=== PATIENT | male | born 1990 | race African-American/Black ===

== ENCOUNTER → 2016-12-11 | Outpatient (CLI) | payer MEDICAID ==
[2016-12-11 18:12] LABS: HEMATOCRIT 42.5 % (37.9-51.0); HEMOGLOBIN 13.5 g/dL (13.5-17.0); MEAN CORPUSCULAR HEMOGLOBIN 27.7 pg (27.0-33.4); MEAN CORPUSCULAR HGB CONC 31.7 g/dL (32.0-36.0); MEAN CORPUSCULAR VOLUME 88 fl (80-97); RED BLOOD COUNT 4.85 10^6/uL (4.35-5.55); WHITE BLOOD COUNT 17.7 10^3/uL (4.0-10.5)
[2016-12-11 18:26] LABS: BAND NEUTROPHILS % (MANUAL) 4 % (3-5); BASOPHILS % (MANUAL) 0 % (0-2); EOSINOPHILS % (MANUAL) 0 % (0-6); LYMPHOCYTES % (MANUAL) 5 % (13-45); TOTAL CELLS COUNTED 100
[2016-12-11 18:27] LABS: RBC MORPHOLOGY COMMENT NORMO-CYTIC/CHROMIC
[2016-12-11 18:37] LABS: ALANINE AMINOTRANSFERASE 29 U/L (21-72); ALBUMIN 4.6 g/dL (3.5-5.0); ALKALINE PHOSPHATASE 110 U/L (38-126); ANION GAP 15 (5-19); ASPARTATE AMINO TRANSFERASE 24 U/L (17-59); BILIRUBIN,DIRECT 0.5 mg/dL (0.0-0.4); BILIRUBIN,TOTAL 0.5 mg/dL (0.2-1.3); BLOOD UREA NITROGEN 14 mg/dL (7-20); CALCIUM 10.2 mg/dL (8.4-10.2); CARBON DIOXIDE 20 mmol/L (22-30); CHLORIDE 111 mmol/L (98-107); CREATININE RESULT 1.11 mg/dL (0.52-1.25); GLUCOSE 120 mg/dL (75-110); POTASSIUM 4.4 mmol/L (3.6-5.0); SODIUM 145.9 mmol/L (137-145); TOTAL PROTEIN 8.4 g/dL (6.3-8.2)
== END ==
LOC: LAB 16:19
PROVIDERS: ATTEND Family Medicine
DX: R50.9 Fever, unspecified (principal)
CPT/HCPCS: 36415; 80053; 85025; 87040

== ENCOUNTER → 2016-12-11 | Outpatient (CLI) | payer MEDICAID | LOC: RAD 15:48 | PROVIDERS: ATTEND Family Medicine | DX: R50.9 Fever, unspecified (principal); K44.9 Diaphragmatic hernia without obstruction or gangrene | CPT/HCPCS: 71020 ==

== ENCOUNTER 2017-11-08 19:48 | Inpatient (IN) | payer MEDICAID, OTHER ==
--- NOTE | 2017-11-08 20:47 | ER Document Report ---
ED GI/ - General Chief Complaint: Nausea/Vomiting Stated Complaint: VOMITING Time Seen by Provider: 11/08/17 20:35 Mode of Arrival: Medic Information source: Relative Cannot obtain history due to: Mentally challenged TRAVEL OUTSIDE OF THE [place] IN LAST 30 DAYS: No - HPI Patient complains to provider of: Vomiting - FAMILY MEMBERS DESCRIBE MUCH RETCHING & GAGGING, VERY LITTLE VOMITUS Onset: This morning Timing/Duration: Gradual Quality of pain: Other - CAN'T SAY, NON-VERBAL Severity at maximum: Severe Severity in ED: None Context: Other - RECENT SURGERY (PARA-ESOPHAGEAL HERNIA REPAIR) Associated symptoms: Nausea, Sweaty, Other - DECREASED APPETITE & P.O. INTAKE Exacerbated by: Denies Relieved by: Denies Similar symptoms previously: No Recently seen / treated by doctor: Yes - SURGERY 10/29 @ [facility], RETURNED HOME . - Related Data Allergies/Adverse Reactions: diphenhydramine [From Benadryl] Allergy (Verified 11/08/17 21:02) Latex, Natural Rubber Allergy (Verified 11/08/17 21:02) red dye Allergy (Verified 11/08/17 21:02) Past Medical History - General Information source: Parent Cannot obtain history due to: Mentally challenged - Social History Smoking Status: Never Smoker Cigarette use (# per day): No Chew tobacco use (# tins/day): No Frequency of alcohol use: None Drug Abuse: None Family History: Reviewed & Not Pertinent Patient has suicidal ideation: No Patient has homicidal ideation: No - Past Medical History Cardiac Medical History: Reports: None Pulmonary Medical History: Reports: None EENT Medical History: Reports: None Neurological Medical History: Reports: Hx Seizures, Other - CEREBRAL PALSY Endocrine Medical History: Reports: None Renal/ Medical History: Reports: None Malignancy Medical History: Reports None GI Medical History: Reports: Hx Gastroesophageal Reflux Disease, Hx Hiatal Hernia Musculoskeltal Medical History: Reports Hx Muscle Weakness Skin Medical History: Reports None Past Surgical History: Reports: Other - G-TUBE, MARIELY, PARA-ESOPHAGEAL HERNIA REPAIR - Immunizations Hx Diphtheria, Pertussis, Tetanus Vaccination: Yes Review of Systems - Review of Systems Constitutional: No symptoms reported. denies: Chills, Fever EENT: No symptoms reported Cardiovascular: No symptoms reported Respiratory: Cough - SLIGHT Gastrointestinal: See HPI Genitourinary: No symptoms reported Musculoskeletal: See HPI Skin: No symptoms reported Neurological/Psychological: See HPI Physical Exam - Vital signs Vitals: Pulse Resp BP Pulse Ox 90 18 108/64 97 11/08/17 19:54 11/08/17 19:54 11/08/17 19:54 11/08/17 19:54 Interpretation: No: Hypotensive, Tachycardic, Hypoxic, Tachypneic, Febrile - General General appearance: Appears well, Alert In distress: None - HEENT Head: Normocephalic Eyes: Normal Conjunctiva: Normal Ears: Normal Nasal: Normal Mouth/Lips: Normal Mucous membranes: Normal Neck: Normal, Supple - Respiratory Respiratory status: No respiratory distress Breath sounds: Normal - Cardiovascular Rhythm: Regular Heart sounds: Normal auscultation Murmur: No - Abdominal Inspection: Other - LAPROSCOPIC SURGICAL WOUNDS HEALING WELL Distension: No distension Bowel sounds: Hypoactive Tenderness: Nontender - Extremities General upper extremity: Normal inspection General lower extremity: Normal inspection - Neurological Neuro grossly intact: No - SEE PMH - Skin Skin Temperature: Warm Skin Moisture: Dry Skin Color: Normal Skin Turgor: Elastic Course - Vital Signs Vital signs: Temp Pulse Resp BP Pulse Ox 90 13 116/78 100 11/08/17 19:54 11/08/17 23:01 11/08/17 23:00 11/08/17 23:01 - Laboratory Result Diagrams: 11/08/17 22:25 11/08/17 22:25 Laboratory results interpreted by me: 11/08/17 11/08/17 11/08/17 22:00 22:25 22:25 WBC 15.5 H Hgb 12.5 L Seg Neuts % (Manual) 83 H Lymphocytes % (Manual) 1 L Abs Neuts (Manual) 13.6 H Abs Lymphs (Manual) 0.3 L Abs Monocytes (Manual) 1.6 H Glucose 143 H AST 106 H ALT 184 H Lipase 500.3 H Urine Protein 30 H Urine Glucose (UA) 50 H Urine Ketones TRACE H Urine Urobilinogen 4.0 H Ur Leukocyte Esterase LARGE H Urine Ascorbic Acid 40 H - EKG Interpretation by Me EKG shows normal: Sinus rhythm, [place], Intervals, QRS Complexes, ST-T Waves Rate: Normal Rhythm: NSR, APC's - SOLITARY - Consults DR. Bri WHITAKER Time consulted: 01:32 Reason for consultation: 11/09/17 01:36 RECOMMENDS: SEEK TRANSFER TO [facility], THERE IS NO G.I. CONSULTATION AVAILABLE AT O... 11/09/17 02:55 Agrees to admit patient to [facility]. Patient has been placed on the waiting list for transfer to [place], pending bed availability. DR. KATIE Magana consulted: 02:10 Reason for consultation: 11/09/17 02:54 Opines that the patient is not an appropriate candidate for transfer, as the pancreatitis appears to be mild and uncomplicated and can be properly managed at a lower level of care. Discharge - Discharge Clinical Impression: Vomiting Qualifiers: Vomiting type: unspecified Vomiting Intractability: non-intractable Nausea presence: with nausea Qualified Code(s): R11.2 - Nausea with vomiting, unspecified Pancreatitis Qualifiers: Chronicity: acute Pancreatitis type: unspecified pancreatitis type Acute pancreatitis complication: unspecified Qualified Code(s): K85.90 - Acute pancreatitis without necrosis or infection, unspecified Urinary tract infection Qualifiers: Urinary tract infection type: acute cystitis Hematuria presence: without hematuria Qualified Code(s): N30.00 - Acute cystitis without hematuria Condition: Good Disposition: ADMITTED INPATIENT Admitting Provider: Whitaker Unit Admitted: [facility]
[2017-11-08] MEDS ORDERED: ONDANSETRON HCL INJ/PF 4 MG/2 ML SDV IV ONE (21:01)
[2017-11-08] MEDS ORDERED: DIAZEPAM INJ 10 MG/2 ML DISP.SYRIN IV ONE (21:01)
[2017-11-08 22:16] LABS: APPEARANCE,URINE CLOUDY; BILIRUBIN,URINE NEGATIVE (NEGATIVE); COLOR,URINE YELLOW; GLUCOSE, URINE 50 mg/dL (NEGATIVE); KETONES,URINE TRACE mg/dL (NEGATIVE); LEUKOCYTE ESTERASE,URINE LARGE (NEGATIVE); NITRITE,URINE NEGATIVE (NEGATIVE); PROTEIN,URINE 30 mg/dL (NEGATIVE); URINE SPECIFIC GRAVITY 1.029
[2017-11-08] MEDS ORDERED: LEVOFLOXACIN 500 MG/D5W RTU 500 MG/100 ML RTUPB IV ONE (22:21)
[2017-11-08 22:40] LABS: HEMATOCRIT 38.4 % (37.9-51.0); HEMOGLOBIN 12.5 g/dL (13.5-17.0); MEAN CORPUSCULAR HEMOGLOBIN 28.1 pg (27.0-33.4); MEAN CORPUSCULAR HGB CONC 32.5 g/dL (32.0-36.0); MEAN CORPUSCULAR VOLUME 87 fl (80-97); RED BLOOD COUNT 4.44 10^6/uL (4.35-5.55); RED CELL DISTRIBUTION WIDTH 13.8 % (11.5-14.0); WHITE BLOOD COUNT 15.5 10^3/uL (4.0-10.5)
[2017-11-08 22:56] LABS: ALANINE AMINOTRANSFERASE 184 U/L (21-72); ALBUMIN 3.9 g/dL (3.5-5.0); ALKALINE PHOSPHATASE 91 U/L (38-126); ANION GAP 14 (5-19); ASPARTATE AMINO TRANSFERASE 106 U/L (17-59); BILIRUBIN,DIRECT 0.3 mg/dL (0.0-0.4); BILIRUBIN,TOTAL 0.3 mg/dL (0.2-1.3); BLOOD UREA NITROGEN 12 mg/dL (7-20); CALCIUM 9.6 mg/dL (8.4-10.2); CARBON DIOXIDE 23 mmol/L (22-30); CHLORIDE 104 mmol/L (98-107); GLUCOSE 143 mg/dL (75-110); LIPASE 500.3 U/L (23-300); POTASSIUM 4.6 mmol/L (3.6-5.0); SODIUM 140.6 mmol/L (137-145); TOTAL PROTEIN 6.8 g/dL (6.3-8.2)
[2017-11-08 23:00] LABS: ABSOLUTE LYMPHOCYTES# (MANUAL) 0.3 10^3/uL (0.5-4.7); ABSOLUTE MONOCYTES # (MANUAL) 1.6 10^3/uL (0.1-1.4); ABSOLUTE NEUTROPHILS# (MANUAL) 13.6 10^3/uL (1.7-8.2); BAND NEUTROPHILS % (MANUAL) 5 % (3-5); BASOPHILS % (MANUAL) 0 % (0-2); EOSINOPHILS % (MANUAL) 0 % (0-6); LYMPHOCYTES % (MANUAL) 1 % (13-45); MONOCYTES % (MANUAL) 10 % (3-13); SEGMENTED NEUTROPHILS % (MAN) 83 % (42-78); TOTAL CELLS COUNTED 100
[2017-11-08 23:02] LABS: PLATELET CLUMPS PRESENT; PLATELET COMMENT ADEQUATE; POIKILOCYTOSIS SLIGHT
[2017-11-08 23:03] LABS: PLATELET COUNT 343 10^3/uL (150-450)
[2017-11-09] MEDS: RINGERS SOLUTION,LACTATED 1,000 ML IV PRN ×2 (00:02→05:20)
--- NOTE | 2017-11-09 01:11 | RADIOLOGY REPORT (SQ) ---
EXAM DESCRIPTION: CT ABDOMEN ORAL CONTRAST ONLY CLINICAL HISTORY: 27 years Male, NAUSEA/VOMITING, 10d POST ESOPHAGEAL HERNIA REPAIR COMPARISON: None. TECHNIQUE: No IV contrast. Oral contrast only. Coronal and sagittal reformat. This exam was performed according to our departmental dose-optimization program, which includes automated exposure control, adjustment of the mA and/or kV according to patient size and/or use of iterative reconstruction technique. Limitation: Arm position. FINDINGS: Surgical clips and artifact at the expected gastroesophageal junction. No evidence of obstruction or free air. No free fluid. Unenhanced inferior chest, abdominal structures, and musculoskeleton appear otherwise grossly unremarkable. Impression: No acute findings.
[2017-11-09] MEDS ORDERED: LAMOTRIGINE 100 MG TABLET PO ONE (03:01)
[2017-11-09] MEDS ORDERED: ZONISAMIDE 100 MG CAPSULE PO ONE (03:01)
[2017-11-09] MEDS ORDERED: CEFEPIME 2 GM/D5W RTU 2 GM/50 ML RTUPB IV ONE ×2 (07:00→09:00)
--- NOTE | 2017-11-09 07:47 | EKG REPORT ---
SEVERITY:- BORDERLINE ECG - SINUS RHYTHM : Confirmed by: Devendra Carias MD 09-Nov-2017 07:46:54
[2017-11-09] MEDS ORDERED: POLYETHYLENE GLYCOL 3350 POWDER 17 GM/1 PACKET PO PRN (08:49)
[2017-11-09] MEDS: PANTOPRAZOLE SODIUM 40 MG VIAL IV SCH (09:39)
[2017-11-09] MEDS: CETIRIZINE 10 MG TABLET PO SCH (09:39)
[2017-11-09] MEDS: ZONISAMIDE 100 MG CAPSULE PO SCH ×2 (09:40→18:44)
[2017-11-09] MEDS: DOCUSATE SODIUM 100 MG CAPSULE PO SCH (09:40)
[2017-11-09] MEDS: NORMAL SALINE 1000 ML 1,000 ML IV PRN ×2 (09:40→23:20)
[2017-11-09] MEDS: CEFEPIME HCL 2 GM in DEXTROSE 5%-WATER 50 ML IV SCH ×2 (09:41→22:10)
[2017-11-09] MEDS ORDERED: (PENDING PHARMACY ID) (Lamotrigine [Lamictal Xr] 200 MG) PO SCH (10:00)
[2017-11-09] MEDS ORDERED: LAMOTRIGINE 200 MG PO SCH (10:00)
[2017-11-09] MEDS ORDERED: CETIRIZINE HCL 10 MG PO SCH (10:00)
[2017-11-09] MEDS ORDERED: CLOBAZAM 5 MG PO SCH (10:00)
[2017-11-09] MEDS ORDERED: BRIVARACETAM PO SCH (10:00)
--- NOTE | 2017-11-09 10:55 | PDOC H&P ---
History of Present Illness Admission Date/PCP: 11/09/17 03:24 SINAI WHITAKER MD Patient complains of: Nausea vomiting History of Present Illness: CHRIST DE ANDA is a 27 year old male This is a 27-year-old patientWith the history of the cerebral palsy and a seizures disorderRecently have a paraesophageal hernia surgery done at [place] was discharged on last Sunday According to the patient mother patient was doing okay since yesterday patients not feeling well and the patient's facial expressiveness change in patients have a vomited 1 and feel like any hives and patients will so weak and brought to the emergency department In the ER patient have a CT abdomen were done on surgical site was all okay His white count was elevated was 15 and patient have a possible UTI per ER physicians and at this point ER physicians call me back and told that possible infections with pancreatitis and suggest to call the vidant For transfer the patient's because no GI availability here and hospitalists told no need to transfer the patient is currently in put on a waiting list and suggest admit here for IV fluid and IV antibiotic When I reviewed the patient's in the morning patient's LFT was elevated and the patient is currently lying in the bed unable to get the history from the patient 's due to the mental conditions but currently not any distress and mother and other family was in the bedside Will further evaluate patient's LFT to rule out any cholecystitis and consult the surgeon for possible any gallstone pancreatitis Past Medical History Cardiac Medical History: Reports: None Pulmonary Medical History: Reports: None EENT Medical History: Reports: None Neurological Medical History: Reports: Seizures, Other - CEREBRAL PALSY Endocrine Medical History: Reports: None Renal/ Medical History: Reports: None Malignancy Medical History: Reports: None GI Medical History: Reports: Gastroesophageal Reflux Disease, Hiatal Hernia GI History Note: Paraesophageal hernia repair Skin Medical History: Reports: None Psychiatric Medical History: Denies: Depression Past Surgical History Past Surgical History: Reports: Other - G-TUBE, MARIELY, PARA-ESOPHAGEAL HERNIA REPAIR Social History Smoking Status: Never Smoker Frequency of Alcohol Use: None Hx Recreational Drug Use: No Drugs: None Hx Prescription Drug Abuse: No Family History Family History: Reviewed & Not Pertinent Parental Family History Reviewed: Yes Children Family History Reviewed: Yes Sibling(s) Family History Reviewed.: Yes Medication/Allergy Home Medications: Brivaracetam [Briviact] 200 mg PO Q12 11/09/17 Cetirizine HCl [Zyrtec 10 mg Tablet] 1 tab PO DAILY 11/09/17 Clobazam [Onfi] 5 mg PO Q12 11/09/17 Docusate Sodium [Colace 100 mg Capsule] 100 mg PO DAILY 11/09/17 Lamotrigine [Lamictal Xr] 200 mg PO Q12 11/09/17 Polyethylene Glycol 3350 [Miralax Powder 17 gm/Packet] 1 packet PO DAILYP PRN Zonisamide [Zonegran 100 mg Capsule] 200 mg PO DAILY 11/09/17 Zonisamide [Zonegran 100 mg Capsule] 300 mg PO QHS 11/09/17 Allergies/Adverse Reactions: diphenhydramine [From Benadryl] Allergy (Verified 11/08/17 21:02) Latex, Natural Rubber Allergy (Verified 11/08/17 21:02) red dye Allergy (Verified 11/08/17 21:02) Review of Systems ROS unobtainable: Due to mental status All systems: reviewed and no additional remarkable complaints except as stated Physical Exam Vital Signs: Temp Pulse Resp BP Pulse Ox 97.4 F 64 16 116/69 100 11/09/17 08:17 11/09/17 08:17 11/09/17 08:17 11/09/17 08:17 11/09/17 08:17 Intake & Output 11/08/17 11/09/17 11/10/17 06:59 06:59 06:59 Intake Total 210 Balance 210 Physical Exam: Cerebral palsy and some mild contracture General appearance: PRESENT: no acute distress Eye exam: PRESENT: PERRLA Mouth exam: PRESENT: neck supple Respiratory exam: PRESENT: clear to auscultation tasha Cardiovascular exam: PRESENT: +S1, +S2 GI/Abdominal exam: PRESENT: normal bowel sounds, soft Extremities exam: ABSENT: pedal edema Neurological exam: PRESENT: alert, awake Skin exam: PRESENT: dry Assessment & Plan - Diagnosis (1) Abnormal LFTs Is this a current diagnosis for this admission?: Yes Plan: Will get the ultrasound of the abdomen and also consult the general surgery for further evaluations to rule out any acute cholecystitis (2) Pancreatitis Qualifiers: Chronicity: acute Pancreatitis type: unspecified pancreatitis type Acute pancreatitis complication: unspecified Qualified Code(s): K85.90 - Acute pancreatitis without necrosis or infection, unspecified Is this a current diagnosis for this admission?: Yes Plan: Mild elevated lipase with this elevated LFT will get the ultrasound and consider general surgery continues IV fluid keep her n.p.o. until the general surgery evaluate the patient (3) Seizure disorder Is this a current diagnosis for this admission?: Yes Plan: Continues to spew seizures medications (4) Cerebral palsy Qualifiers: Cerebral palsy type: unspecified type Qualified Code(s): G80.9 - Cerebral palsy, unspecified Is this a current diagnosis for this admission?: Yes (5) Urinary tract infection Qualifiers: Urinary tract infection type: acute cystitis Hematuria presence: without hematuria Qualified Code(s): N30.00 - Acute cystitis without hematuria Is this a current diagnosis for this admission?: Yes Plan: Continues to IV antibioticPrefer not use the Levaquin due to the seizures activityContinues IV cefepime (6) Vomiting Qualifiers: Vomiting type: unspecified Vomiting Intractability: non-intractable Nausea presence: with nausea Qualified Code(s): R11.2 - Nausea with vomiting, unspecified Is this a current diagnosis for this admission?: Yes Plan: Continues to Protonix - Time Time Spent: 30 to 50 Minutes Medications reviewed and adjusted accordingly: Yes Anticipated discharge: Other Within: Other - Inpatient Certification Medical Necessity: Need Close Monitoring Due to Risk of Patient Decompensation, Need For IV Fluids, Need for IV Antibiotics Post Hospital Care: D/C Suit Maker Documentation - Plan Summary Plan Summary: Continues IV fluid continues IV antibiotic Discussed with the patient's mother and other family member and the bedside Patients waiting for transfer to [place] if patient have a some more positive finding with the gallbladder will prefer to further call back
--- NOTE | 2017-11-09 11:54 | RADIOLOGY REPORT (SQ) ---
EXAM DESCRIPTION: U/S ABDOMEN COMPLETE W/O DOP COMPLETED DATE/TIME: 11/09/2017 11:09 am REASON FOR STUDY: abnormal lft/nause/vomiting COMPARISON: Abdominal CT scan dated 11/09/2017 TECHNIQUE: Dynamic and static grayscale images acquired of the abdomen and recorded on PACS. Additio nal selected color Doppler and spectral images recorded. LIMITATIONS: Study is limited due to overlying bowel gas and the patient's body habitus and conditio n. FINDINGS: PANCREAS: The pancreas was incompletely visualized due to overlying bowel gas. No definit e pancreatic masses were identified LIVER: No masses. Echotexture normal. LIVER VASCULATURE: Normal directional flow of the main portal vein and hepatic veins. GALLBLADDER: No stones. Normal wall thickness. No pericholecystic fluid. ULTRASOUND-DETECTED OVIEDO'S SIGN: Negative. INTRAHEPATIC DUCTS AND COMMON DUCT: CBD and intrahepatic ducts normal caliber. No filling defects. INFERIOR VENA CAVA: Normal flow. AORTA: No aneurysm. RIGHT KIDNEY: Right kidney was not visualized due to overlying bowel gas LEFT KIDNEY: 9.4 cm in length. Normal echogenicity. No solid or suspicious masses. No hydronep hrosis. No calcifications. SPLEEN: Normal size. No solid masses. PERITONEAL AND PLEURAL SPACES: No ascites or effusions. OTHER: No other significant finding. IMPRESSION: Limited study as noted above. No significant intra-abdominal abnormalities were identif ied. Findings as noted above TECHNICAL DOCUMENTATION: JOB ID: [id number] [employer]- All Rights Reserved Reading location - IP/workstation name: [email or web address]
--- NOTE | 2017-11-09 12:35 | PDOC CONSULTATION ---
Consultation Consult Date: 11/09/17 Consult reason:: pancreatitis, vomiting History of Present Illness Admission Date/PCP: 11/09/17 03:24 SINAI WHITAKER MD History of Present Illness: CHRIST DE ANDA is a 27 year old male with mental retardation of unknown cause , who underwent mariely fundoplication 10 days ago and discharged to home in satisfactory conditions. According to the mother, the patient has been vomiting at home and heas been admitted and found to have acute pancreatitis with lipase of 500. Initial w/u included LFT, US of the gallbladder, and CT scan A/P, all negative. The patient vomiting has currently subsided as he has been made NPO.. Past Medical History Medical History: None Cardiac Medical History: Reports: None Pulmonary Medical History: Reports: None EENT Medical History: Reports: None Neurological Medical History: Reports: Seizures, Other - CEREBRAL PALSY Endocrine Medical History: Reports: None Renal/ Medical History: Reports: None Malignancy Medical History: Reports: None GI Medical History: Reports: Gastroesophageal Reflux Disease, Hiatal Hernia Skin Medical History: Reports: None Psychiatric Medical History: Denies: Depression Past Surgical History Past Surgical History: Reports: Other - G-TUBE, MARIELY, PARA-ESOPHAGEAL HERNIA REPAIR Social History Smoking Status: Never Smoker Frequency of Alcohol Use: None Hx Recreational Drug Use: No Drugs: None Hx Prescription Drug Abuse: No Family History Family History: Reviewed & Not Pertinent Parental Family History Reviewed: No Children Family History Reviewed: No Sibling(s) Family History Reviewed.: No Medication/Allergy Home Medications: Brivaracetam [Briviact] 200 mg PO Q12 11/09/17 Cetirizine HCl [Zyrtec 10 mg Tablet] 1 tab PO DAILY 11/09/17 Clobazam [Onfi] 5 mg PO Q12 11/09/17 Docusate Sodium [Colace 100 mg Capsule] 100 mg PO DAILY 11/09/17 Lamotrigine [Lamictal Xr] 200 mg PO Q12 11/09/17 Polyethylene Glycol 3350 [Miralax Powder 17 gm/Packet] 1 packet PO DAILYP PRN Zonisamide [Zonegran 100 mg Capsule] 200 mg PO DAILY 11/09/17 Zonisamide [Zonegran 100 mg Capsule] 300 mg PO QHS 11/09/17 Allergies/Adverse Reactions: diphenhydramine [From Benadryl] Allergy (Verified 11/08/17 21:02) Latex, Natural Rubber Allergy (Verified 11/08/17 21:02) red dye Allergy (Verified 11/08/17 21:02) Physical Exam Vital Signs: Temp Pulse Resp BP Pulse Ox 97.4 F 64 16 116/69 100 11/09/17 08:17 11/09/17 08:17 11/09/17 08:17 11/09/17 08:17 11/09/17 08:17 Intake & Output 11/08/17 11/09/17 11/10/17 06:59 06:59 06:59 Intake Total 210 Balance 210 General appearance: PRESENT: no acute distress, other - detached Mouth exam: PRESENT: moist Respiratory exam: PRESENT: chest wall tenderness Cardiovascular exam: PRESENT: RRR GI/Abdominal exam: PRESENT: normal bowel sounds, soft Musculoskeletal exam: PRESENT: other - contracted 4 extremities Neurological exam: PRESENT: aphasic Results Impressions: Abdomen Ultrasound 11/09/17 00:00 IMPRESSION: Limited study as noted above. No significant intra-abdominal abnormalities were identified. Findings as noted above Assessment & Plan - Diagnosis (1) Pancreatitis Qualifiers: Chronicity: acute Pancreatitis type: unspecified pancreatitis type Acute pancreatitis complication: unspecified Qualified Code(s): K85.90 - Acute pancreatitis without necrosis or infection, unspecified Is this a current diagnosis for this admission?: Yes Plan: A/ Acute pancreatitis Normal US GB Normal CT scan P/ No obvious cause of pancreatitis identified: excluding all common causes (stone , ETOH), most likely either pancreas divisum, drugs, or a metabolic condition should be ocnsidered in the differentila diagnosis. All of these have no known effective treatment. Agree with transfer back to [facility].
[2017-11-09] MEDS ORDERED: MORPHINE SULFATE 10 MG/ML INJ IV PRN (13:15)
[2017-11-09] MEDS: ACETAMINOPHEN 325 MG TABLET PO PRN ×2 (14:48→22:13)
[2017-11-09] MEDS ORDERED: CEFEPIME 2 GM/D5W RTU 2 GM/50 ML RTUPB IV SCH (22:00)
[2017-11-09] MEDS: CLOBAZAM PO SCH (22:00)
[2017-11-09] MEDS: BRIVARACETAM 100 MG PO SCH (22:10)
[2017-11-09] MEDS: LAMOTRIGINE 200 MG PO SCH (22:11)
[2017-11-10 06:29] LABS: ABSOLUTE EOSINOPHILS # (AUTO) 0.1 10^3/uL (0.0-0.6); ABSOLUTE LYMPHOCYTES (AUTO) 1.1 10^3/uL (0.5-4.7); ABSOLUTE MONOCYTES (AUTO) 1.1 10^3/uL (0.1-1.4); ABSOLUTE NEUT (AUTO) 4.5 10^3/uL (1.7-8.2); BASOPHILS % (AUTO) 0.4 % (0-2); EOSINOPHILS % (AUTO) 1.2 % (0-6); HEMATOCRIT 35.4 % (37.9-51.0); HEMOGLOBIN 11.6 g/dL (13.5-17.0); LYMPHOCYTES % (AUTO) 16.6 % (13-45); MEAN CORPUSCULAR HEMOGLOBIN 28.2 pg (27.0-33.4); MEAN CORPUSCULAR HGB CONC 32.7 g/dL (32.0-36.0); MEAN CORPUSCULAR VOLUME 86 fl (80-97); MONOCYTES % (AUTO) 15.7 % (3-13); PLATELET COUNT 390 10^3/uL (150-450); SEGMENTED NEUTROPHILS % (AUTO) 66.1 % (42-78); TOTAL CELLS COUNTED % (AUTO) 100 %; WHITE BLOOD COUNT 6.8 10^3/uL (4.0-10.5)
[2017-11-10 06:51] LABS: ALANINE AMINOTRANSFERASE 125 U/L (21-72); ALBUMIN 3.4 g/dL (3.5-5.0); ALKALINE PHOSPHATASE 73 U/L (38-126); ANION GAP 10 (5-19); ASPARTATE AMINO TRANSFERASE 57 U/L (17-59); BILIRUBIN,DIRECT 0.2 mg/dL (0.0-0.4); BILIRUBIN,TOTAL 0.3 mg/dL (0.2-1.3); BLOOD UREA NITROGEN 9 mg/dL (7-20); CALCIUM 9.4 mg/dL (8.4-10.2); CARBON DIOXIDE 24 mmol/L (22-30); CHLORIDE 109 mmol/L (98-107); GLUCOSE 80 mg/dL (75-110); LIPASE 653.9 U/L (23-300); POTASSIUM 4.2 mmol/L (3.6-5.0); SODIUM 143.4 mmol/L (137-145); TOTAL PROTEIN 6.1 g/dL (6.3-8.2)
[2017-11-10] MEDS: ZONISAMIDE 100 MG CAPSULE PO SCH ×2 (08:53→18:37)
[2017-11-10] MEDS: CLOBAZAM PO SCH ×2 (09:00→22:03)
[2017-11-10] MEDS: CETIRIZINE 10 MG TABLET PO SCH (09:14)
[2017-11-10] MEDS: DOCUSATE SODIUM 100 MG CAPSULE PO SCH (09:14)
[2017-11-10] MEDS: PANTOPRAZOLE SODIUM 40 MG VIAL IV SCH (09:14)
[2017-11-10] MEDS: CEFEPIME HCL 2 GM in DEXTROSE 5%-WATER 50 ML IV SCH (09:15)
[2017-11-10] MEDS: LAMOTRIGINE 200 MG PO SCH ×2 (09:15→22:46)
[2017-11-10] MEDS: BRIVARACETAM 100 MG PO SCH ×2 (09:16→22:46)
[2017-11-10] MEDS: NORMAL SALINE 1000 ML 1,000 ML IV PRN (11:38)
--- NOTE | 2017-11-10 12:32 | PDOC PROGRESS REPORT ---
Subjective Progress Note for:: 11/10/17 Subjective:: Patient was seen by the bedside, he has severe mental retardation, recently had fundoplication, he was admitted for the management of acute pancreatitis and UTI Reason For Visit: PANCREATITIS,UTI,VOMITING Physical Exam Vital Signs: Temp Pulse Resp BP Pulse Ox 97.6 F 74 16 127/79 H 100 11/10/17 07:29 11/10/17 07:29 11/10/17 07:29 11/10/17 07:29 11/10/17 07:29 Intake & Output 11/09/17 11/10/17 11/11/17 06:59 06:59 06:59 Intake Total 210 1200 Balance 210 1200 Weight 41.5 kg General appearance: PRESENT: no acute distress Eye exam: PRESENT: PERRLA Respiratory exam: PRESENT: clear to auscultation tasha Cardiovascular exam: PRESENT: +S1, +S2 GI/Abdominal exam: PRESENT: soft Neurological exam: PRESENT: alert Results Laboratory Results: 11/10/17 06:15 11/10/17 06:15 11/10/17 11/10/17 06:15 06:15 WBC 6.8 RBC 4.10 L Hgb 11.6 L Hct 35.4 L MCV 86 MCH 28.2 MCHC 32.7 RDW 14.0 Plt Count 390 Seg Neutrophils % 66.1 Lymphocytes % 16.6 Monocytes % 15.7 H Eosinophils % 1.2 Basophils % 0.4 Absolute Neutrophils 4.5 Absolute Lymphocytes 1.1 Absolute Monocytes 1.1 Absolute Eosinophils 0.1 Absolute Basophils 0.0 Sodium 143.4 Potassium 4.2 Chloride 109 H Carbon Dioxide 24 Anion Gap 10 BUN 9 Creatinine 0.69 Est GFR ( Amer) > 60 Est GFR (Non-Af Amer) > 60 Glucose 80 Calcium 9.4 Total Bilirubin 0.3 AST 57 ALT 125 H Alkaline Phosphatase 73 Total Protein 6.1 L Albumin 3.4 L Lipase 653.9 H Impressions: Abdomen Ultrasound 11/09/17 00:00 IMPRESSION: Limited study as noted above. No significant intra-abdominal abnormalities were identified. Findings as noted above Assessment & Plan - Diagnosis (1) Acute pancreatitis Qualifiers: Pancreatitis type: unspecified pancreatitis type Acute pancreatitis complication: unspecified Qualified Code(s): K85.90 - Acute pancreatitis without necrosis or infection, unspecified Is this a current diagnosis for this admission?: Yes (2) Cerebral palsy Qualifiers: Cerebral palsy type: unspecified type Qualified Code(s): G80.9 - Cerebral palsy, unspecified Is this a current diagnosis for this admission?: Yes (3) Seizure disorder Is this a current diagnosis for this admission?: Yes (4) Urinary tract infection Qualifiers: Urinary tract infection type: acute cystitis Hematuria presence: without hematuria Qualified Code(s): N30.00 - Acute cystitis without hematuria Is this a current diagnosis for this admission?: Yes - Plan Summary Plan Summary: Patient will continue present management plan
[2017-11-10] MEDS: CEFEPIME HCL 2 GM in DEXTROSE 5%-WATER 100 ML IV SCH (22:45)
[2017-11-11] MEDS: ACETAMINOPHEN 325 MG TABLET PO PRN (02:16)
[2017-11-11 06:43] LABS: ANION GAP 11 (5-19); BLOOD UREA NITROGEN 9 mg/dL (7-20); CALCIUM 9.8 mg/dL (8.4-10.2); CARBON DIOXIDE 26 mmol/L (22-30); CHLORIDE 106 mmol/L (98-107); GLUCOSE 78 mg/dL (75-110); POTASSIUM 5.1 mmol/L (3.6-5.0); SODIUM 143.2 mmol/L (137-145)
[2017-11-11] MEDS: NORMAL SALINE 1000 ML 1,000 ML IV PRN (07:21)
[2017-11-11] MEDS: PANTOPRAZOLE SODIUM 40 MG VIAL IV SCH (09:46)
[2017-11-11] MEDS: ZONISAMIDE 100 MG CAPSULE PO SCH ×2 (09:46→17:48)
[2017-11-11] MEDS: CETIRIZINE 10 MG TABLET PO SCH (09:46)
[2017-11-11] MEDS: DOCUSATE SODIUM 100 MG CAPSULE PO SCH (09:46)
[2017-11-11] MEDS: LAMOTRIGINE 200 MG PO SCH ×2 (09:50→22:33)
[2017-11-11] MEDS: CEFEPIME HCL 2 GM in DEXTROSE 5%-WATER 100 ML IV SCH ×2 (09:50→22:33)
[2017-11-11] MEDS: BRIVARACETAM 100 MG PO SCH ×2 (09:50→22:33)
[2017-11-11] MEDS: CLOBAZAM PO SCH ×2 (09:50→22:30)
--- NOTE | 2017-11-11 15:22 | PDOC PROGRESS REPORT ---
Subjective Progress Note for:: 11/18/17 Subjective:: Patient admitted for management of UTI and acute pancreatitis. He is mentally challenged, history taking is a challenge, mother was in the room. The lipase is elevated but this is irrelevant, patient is no vomiting, we will start p.o. food and advance as tolerated, to continue IV antibiotic for UTI. Reason For Visit: PANCREATITIS,UTI,VOMITING Physical Exam Vital Signs: Temp Pulse Resp BP Pulse Ox 97.6 F 70 13 110/64 99 11/11/17 11:15 11/11/17 11:15 11/11/17 11:15 11/11/17 11:15 11/11/17 11:15 Intake & Output 11/10/17 11/11/17 11/12/17 06:59 06:59 06:59 Intake Total 1200 2049 0 Balance 1200 2049 0 Weight 41.5 kg 46.9 kg General appearance: PRESENT: no acute distress Head exam: PRESENT: atraumatic, normocephalic Eye exam: PRESENT: PERRLA. ABSENT: scleral icterus Neck exam: PRESENT: full ROM Respiratory exam: PRESENT: clear to auscultation tasha Cardiovascular exam: PRESENT: RRR, +S1, +S2 GI/Abdominal exam: PRESENT: normal bowel sounds, soft Rectal exam: PRESENT: deferred Neurological exam: PRESENT: alert Psychiatric exam: PRESENT: appropriate affect Skin exam: PRESENT: dry, intact, warm Results Laboratory Results: 11/10/17 06:15 11/11/17 05:36 11/11/17 11/11/17 05:36 08:04 Sodium 143.2 Potassium 5.1 H Chloride 106 Carbon Dioxide 26 Anion Gap 11 BUN 9 Creatinine 0.82 Est GFR ( Amer) > 60 Est GFR (Non-Af Amer) > 60 Glucose 78 Calcium 9.8 Lipase 805.6 H Impressions: Abdomen Ultrasound 11/09/17 00:00 IMPRESSION: Limited study as noted above. No significant intra-abdominal abnormalities were identified. Findings as noted above Assessment & Plan - Diagnosis (1) Acute pancreatitis Qualifiers: Pancreatitis type: unspecified pancreatitis type Acute pancreatitis complication: unspecified Qualified Code(s): K85.90 - Acute pancreatitis without necrosis or infection, unspecified Is this a current diagnosis for this admission?: Yes Plan: Start p.o. diet (2) Cerebral palsy Qualifiers: Cerebral palsy type: unspecified type Qualified Code(s): G80.9 - Cerebral palsy, unspecified Is this a current diagnosis for this admission?: Yes (3) Seizure disorder Is this a current diagnosis for this admission?: Yes (4) Urinary tract infection Qualifiers: Urinary tract infection type: acute cystitis Hematuria presence: without hematuria Qualified Code(s): N30.00 - Acute cystitis without hematuria Is this a current diagnosis for this admission?: Yes
[2017-11-12] MEDS: NORMAL SALINE 1000 ML 1,000 ML IV PRN (00:10)
[2017-11-12 05:10] LABS: ABSOLUTE EOSINOPHILS # (AUTO) 0.1 10^3/uL (0.0-0.6); ABSOLUTE LYMPHOCYTES (AUTO) 0.9 10^3/uL (0.5-4.7); BASOPHILS % (AUTO) 0.4 % (0-2); EOSINOPHILS % (AUTO) 1.4 % (0-6); HEMATOCRIT 34.5 % (37.9-51.0); HEMOGLOBIN 11.3 g/dL (13.5-17.0); LYMPHOCYTES % (AUTO) 18.5 % (13-45); MEAN CORPUSCULAR HGB CONC 32.7 g/dL (32.0-36.0); MEAN CORPUSCULAR VOLUME 86 fl (80-97); MONOCYTES % (AUTO) 19.6 % (3-13); PLATELET COUNT 516 10^3/uL (150-450); RED BLOOD COUNT 4.03 10^6/uL (4.35-5.55); RED CELL DISTRIBUTION WIDTH 13.8 % (11.5-14.0); SEGMENTED NEUTROPHILS % (AUTO) 60.1 % (42-78); TOTAL CELLS COUNTED % (AUTO) 100 %; WHITE BLOOD COUNT 5.1 10^3/uL (4.0-10.5)
[2017-11-12 05:36] LABS: ALANINE AMINOTRANSFERASE 80 U/L (21-72); ALBUMIN 3.3 g/dL (3.5-5.0); ALKALINE PHOSPHATASE 67 U/L (38-126); ANION GAP 11 (5-19); ASPARTATE AMINO TRANSFERASE 23 U/L (17-59); BILIRUBIN,DIRECT 0.2 mg/dL (0.0-0.4); BILIRUBIN,TOTAL 0.4 mg/dL (0.2-1.3); BLOOD UREA NITROGEN 13 mg/dL (7-20); CALCIUM 9.3 mg/dL (8.4-10.2); CARBON DIOXIDE 23 mmol/L (22-30); CHLORIDE 106 mmol/L (98-107); GLUCOSE 70 mg/dL (75-110); POTASSIUM 4.3 mmol/L (3.6-5.0); SODIUM 140.2 mmol/L (137-145); TOTAL PROTEIN 5.9 g/dL (6.3-8.2)
[2017-11-12] MEDS: CETIRIZINE 10 MG TABLET PO SCH (10:28)
[2017-11-12] MEDS: DOCUSATE SODIUM 100 MG CAPSULE PO SCH (10:28)
[2017-11-12] MEDS: ZONISAMIDE 100 MG CAPSULE PO SCH ×2 (10:29→18:04)
[2017-11-12] MEDS: BRIVARACETAM 100 MG PO SCH ×2 (10:30→23:17)
[2017-11-12] MEDS: LAMOTRIGINE 200 MG PO SCH ×2 (10:31→23:18)
[2017-11-12] MEDS: PANTOPRAZOLE SODIUM 40 MG VIAL IV SCH (10:31)
[2017-11-12] MEDS: CEFEPIME HCL 2 GM in DEXTROSE 5%-WATER 100 ML IV SCH ×2 (10:33→23:16)
[2017-11-12] MEDS: CLOBAZAM 10 MG PO SCH ×2 (11:25→23:17)
--- NOTE | 2017-11-12 13:12 | PDOC PROGRESS REPORT ---
Subjective Progress Note for:: 11/12/17 Subjective:: Patient is currently doing well Patient's lipase is still elevatedCurrently patients looks much better patient was started on a clear liquid diet Reason For Visit: PANCREATITIS,UTI,VOMITING Physical Exam Vital Signs: Temp Pulse Resp BP Pulse Ox 97.8 F 72 15 112/63 95 11/12/17 08:10 11/12/17 08:10 11/12/17 08:10 11/12/17 08:10 11/12/17 08:10 Intake & Output 11/11/17 11/12/17 11/13/17 06:59 06:59 06:59 Intake Total 2049 1633 Balance 2049 1633 Weight 46.9 kg 47.3 kg General appearance: PRESENT: no acute distress, well-developed, well-nourished Head exam: PRESENT: atraumatic, normocephalic Eye exam: PRESENT: conjunctiva pink, EOMI, PERRLA. ABSENT: scleral icterus Ear exam: PRESENT: normal external ear exam Mouth exam: PRESENT: moist, tongue midline Neck exam: PRESENT: full ROM. ABSENT: carotid bruit, JVD, lymphadenopathy, thyromegaly Cardiovascular exam: PRESENT: RRR. ABSENT: diastolic murmur, rubs, systolic murmur Pulses: PRESENT: normal dorsalis pedis pul, +2 pedal pulses bilateral Vascular exam: PRESENT: normal capillary refill GI/Abdominal exam: PRESENT: normal bowel sounds, soft. ABSENT: distended, guarding, mass, organolmegaly, rebound, tenderness Rectal exam: PRESENT: deferred Neurological exam: PRESENT: alert, awake. ABSENT: motor sensory deficit Psychiatric exam: PRESENT: appropriate affect, normal mood. ABSENT: homicidal ideation, suicidal ideation Skin exam: PRESENT: dry, intact, warm. ABSENT: cyanosis, rash Results Laboratory Results: 11/12/17 03:59 11/12/17 03:59 11/12/17 11/12/17 03:59 03:59 WBC 5.1 RBC 4.03 L Hgb 11.3 L Hct 34.5 L MCV 86 MCH 28.0 MCHC 32.7 RDW 13.8 Plt Count 516 H Seg Neutrophils % 60.1 Lymphocytes % 18.5 Monocytes % 19.6 H Eosinophils % 1.4 Basophils % 0.4 Absolute Neutrophils 3.0 Absolute Lymphocytes 0.9 Absolute Monocytes 1.0 Absolute Eosinophils 0.1 Absolute Basophils 0.0 Sodium 140.2 Potassium 4.3 Chloride 106 Carbon Dioxide 23 Anion Gap 11 BUN 13 Creatinine 0.69 Est GFR ( Amer) > 60 Est GFR (Non-Af Amer) > 60 Glucose 70 L Calcium 9.3 Total Bilirubin 0.4 AST 23 ALT 80 H Alkaline Phosphatase 67 Total Protein 5.9 L Albumin 3.3 L Lipase 941.0 H Impressions: Abdomen Ultrasound 11/09/17 00:00 IMPRESSION: Limited study as noted above. No significant intra-abdominal abnormalities were identified. Findings as noted above Assessment & Plan - Diagnosis (1) Abnormal LFTs Is this a current diagnosis for this admission?: Yes Plan: Currently all stable will wait for the surgery to further evaluate (2) Pancreatitis Qualifiers: Chronicity: acute Pancreatitis type: unspecified pancreatitis type Acute pancreatitis complication: unspecified Qualified Code(s): K85.90 - Acute pancreatitis without necrosis or infection, unspecified Is this a current diagnosis for this admission?: Yes Plan: Patient's clinically looks much better but lipase is still elevated (3) Seizure disorder Is this a current diagnosis for this admission?: Yes Plan: Continues to spew seizures medications (4) Cerebral palsy Qualifiers: Cerebral palsy type: unspecified type Qualified Code(s): G80.9 - Cerebral palsy, unspecified Is this a current diagnosis for this admission?: Yes (5) Urinary tract infection Qualifiers: Urinary tract infection type: acute cystitis Hematuria presence: without hematuria Qualified Code(s): N30.00 - Acute cystitis without hematuria Is this a current diagnosis for this admission?: Yes Plan: Continues to IV antibioticPrefer not use the Levaquin due to the seizures activityContinues IV cefepime (6) Vomiting Qualifiers: Vomiting type: unspecified Vomiting Intractability: non-intractable Nausea presence: with nausea Qualified Code(s): R11.2 - Nausea with vomiting, unspecified Is this a current diagnosis for this admission?: Yes Plan: Currently all resolved - Time Time Spent with patient: 15-24 minutes Medications reviewed and adjusted accordingly: Yes Anticipated discharge: Other Within: Other - Inpatient Certification Medical Necessity: Need Close Monitoring Due to Risk of Patient Decompensation, Need For IV Fluids, Need for IV Antibiotics Post Hospital Care: D/C Director Of Public Relations Documentation - Plan Summary Plan Summary: Discussed with the mother regarding the patient's current conditions
[2017-11-12] MEDS: ONDANSETRON HCL INJ/PF 4 MG/2 ML SDV IV PRN ×2 (14:27→19:59)
[2017-11-13 05:24] LABS: ABSOLUTE EOSINOPHILS # (AUTO) 0.1 10^3/uL (0.0-0.6); ABSOLUTE LYMPHOCYTES (AUTO) 0.9 10^3/uL (0.5-4.7); ABSOLUTE MONOCYTES (AUTO) 0.6 10^3/uL (0.1-1.4); ABSOLUTE NEUT (AUTO) 5.2 10^3/uL (1.7-8.2); BASOPHILS % (AUTO) 0.2 % (0-2); HEMATOCRIT 35.9 % (37.9-51.0); HEMOGLOBIN 11.9 g/dL (13.5-17.0); LYMPHOCYTES % (AUTO) 12.7 % (13-45); MEAN CORPUSCULAR HEMOGLOBIN 28.4 pg (27.0-33.4); MEAN CORPUSCULAR HGB CONC 33.2 g/dL (32.0-36.0); MEAN CORPUSCULAR VOLUME 85 fl (80-97); MONOCYTES % (AUTO) 9.4 % (3-13); PLATELET COUNT 586 10^3/uL (150-450); RED CELL DISTRIBUTION WIDTH 13.8 % (11.5-14.0); SEGMENTED NEUTROPHILS % (AUTO) 76.7 % (42-78); TOTAL CELLS COUNTED % (AUTO) 100 %; WHITE BLOOD COUNT 6.7 10^3/uL (4.0-10.5)
[2017-11-13 05:40] LABS: ALANINE AMINOTRANSFERASE 69 U/L (21-72); ALBUMIN 3.6 g/dL (3.5-5.0); ALKALINE PHOSPHATASE 72 U/L (38-126); ANION GAP 12 (5-19); ASPARTATE AMINO TRANSFERASE 27 U/L (17-59); BILIRUBIN,DIRECT 0.4 mg/dL (0.0-0.4); BILIRUBIN,TOTAL 0.4 mg/dL (0.2-1.3); BLOOD UREA NITROGEN 9 mg/dL (7-20); CALCIUM 9.7 mg/dL (8.4-10.2); CARBON DIOXIDE 27 mmol/L (22-30); CHLORIDE 103 mmol/L (98-107); GLUCOSE 92 mg/dL (75-110); LIPASE 660.5 U/L (23-300); POTASSIUM 4.1 mmol/L (3.6-5.0); SODIUM 141.9 mmol/L (137-145); TOTAL PROTEIN 7.1 g/dL (6.3-8.2)
[2017-11-13] MEDS: ZONISAMIDE 100 MG CAPSULE PO SCH ×2 (08:43→17:50)
--- NOTE | 2017-11-13 10:14 | PDOC TRANSFER SUMMARY ---
General Admission Date/PCP: 11/09/17 03:24 SINAI WHITAKER MD Transfer Date: 11/13/17 Accepting Facility: [facility] - Transfer Diagnosis (1) Abnormal LFTs Is this a current diagnosis for this admission?: Yes Diagnosis Summary: Currently all improving (2) Pancreatitis Is this a current diagnosis for this admission?: Yes Diagnosis Summary: Status post paraesophageal surgery currently doing better (3) Seizure disorder Is this a current diagnosis for this admission?: Yes Diagnosis Summary: Currently stable with current medications (4) Cerebral palsy Is this a current diagnosis for this admission?: Yes (5) Urinary tract infection Is this a current diagnosis for this admission?: Yes Diagnosis Summary: Currently on IV antibiotic (6) Vomiting Is this a current diagnosis for this admission?: Yes Diagnosis Summary: Still persistent nausea vomiting status post paraesophageal surgery discussed with the CT surgeon referred to the tertiary centers for further evaluations - Transfer Medications Home Medications: Brivaracetam [Briviact] 200 mg PO Q12 11/09/17 Cetirizine HCl [Zyrtec 10 mg Tablet] 1 tab PO DAILY 11/09/17 Clobazam [Onfi] 5 mg PO Q12 11/09/17 Docusate Sodium [Colace 100 mg Capsule] 100 mg PO DAILY 11/09/17 Lamotrigine [Lamictal Xr] 200 mg PO Q12 11/09/17 Polyethylene Glycol 3350 [Miralax Powder 17 gm/Packet] 1 packet PO DAILYP PRN Zonisamide [Zonegran 100 mg Capsule] 200 mg PO DAILY 11/09/17 Zonisamide [Zonegran 100 mg Capsule] 300 mg PO QHS 11/09/17 Transfer Medications: Current Medications Acetaminophen (Tylenol 325 Mg Tablet) 650 mg PO Q6HP PRN PRN Reason: PAIN/FEVER Stop: 12/09/17 13:15 Last Admin: 11/11/17 02:16 Dose: 650 mg Cetirizine HCl (Zyrtec 10 Mg Tablet) 10 mg PO DAILY SOFÍA Stop: 12/09/17 09:59 Last Admin: 11/12/17 10:28 Dose: 10 mg Docusate Sodium (Colace 100 Mg Capsule) 100 mg PO DAILY SOFÍA Stop: 12/09/17 09:59 Last Admin: 11/12/17 10:28 Dose: 100 mg Lactated Ringer's (Lactated Ringers 1000 Ml Iv Soln) 1,000 mls @ 200 mls/hr IV CONTINUOUS PRN PRN Reason: THIS MED IS NOT "PRN" Stop: 12/08/17 22:20 Last Admin: 11/09/17 05:20 Dose: 1,000 ml Sodium Chloride (Nacl 0.9% 1000 Ml Iv Soln) 1,000 mls @ 100 mls/hr IV CONTINUOUS PRN PRN Reason: THIS MED IS NOT "PRN" Stop: 12/09/17 06:47 Last Admin: 11/12/17 00:10 Dose: 1,000 ml Cefepime HCl 2 gm/ Dextrose 100 mls @ 200 mls/hr IV Q12 [facility] Stop: 11/16/17 21:59 Last Admin: 11/12/17 23:16 Dose: 2 gm Ondansetron HCl (Zofran Inj/Pf 4 Mg/2 Ml Sdv) 4 mg IV Q4HP PRN PRN Reason: NAUSEA Stop: 12/12/17 13:38 Last Admin: 11/12/17 19:59 Dose: 4 mg Pantoprazole Sodium (Protonix Iv Inj 40 Mg Vial) 40 mg IV DAILY [facility] Stop: 11/15/17 09:59 Last Admin: 11/12/17 10:31 Dose: 40 mg Brivaracetam [ Briviact] 100mg Tablet 1 dose PO Q12 [facility] Stop: 12/09/17 21:59 Last Admin: 11/12/17 23:17 Dose: 1 dose Lamotrigine [ Lamictal Xr] 200 Mg Tablet 1 dose PO Q12 [facility] Stop: 12/09/17 21:59 Last Admin: 11/12/17 23:18 Dose: 1 dose Clobazam [Onfi] (Tablet 10mg) 1 dose PO Q12 [facility] Stop: 12/12/17 09:59 Last Admin: 11/12/17 23:17 Dose: 1 dose Polyethylene Glycol (Miralax Powder 17 Gm/Packet) 17 gm PO DAILYP PRN PRN Reason: FOR CONSTIPATION Stop: 12/09/17 08:48 Zonisamide (Zonegran 100 Mg Capsule) 200 mg PO QAM [facility] Stop: 12/09/17 07:59 Last Admin: 11/13/17 08:43 Dose: 200 mg Zonisamide (Zonegran 100 Mg Capsule) 300 mg PO QPM SOFÍA Stop: 12/09/17 17:59 Last Admin: 11/12/17 18:04 Dose: 300 mg - Allergies Allergies/Adverse Reactions: diphenhydramine [From Benadryl] Allergy (Verified 11/08/17 21:02) Latex, Natural Rubber Allergy (Verified 11/08/17 21:02) red dye Allergy (Verified 11/08/17 21:02) Hospital Course Hospital Course: This is a 27-year-old male with a history of the cerebral palsy recently underwent for the paraesophageal surgery at [place] and status post after 3 days patients came to the our ER from the discharge from the [place] with a complaint of nausea vomitingAnd initially find outpatient was some pancreatitis with urinary tract infections and agree and will suggest to keep the patient here Patient was put on IV fluid and IV antibiotics and the general surgery saw the patient And an ultrasound of the liver was done was negative for any gallstones Patient's pancreatitis clinically all improving and the patient's urinary tract infection is also improving but every time try to fit the patient's patients to nausea and vomiting and unable to tolerate Discussed with the hospitalist and CT surgeon today and suggest the patient was referred back to them for further evaluation and possible dilatations and possible ERCP Discussed with the mother with extensively in the room in patients was transferred when the bed available Physical Exam Vital Signs: Temp Pulse Resp BP Pulse Ox 97.3 F 63 12 112/69 100 11/13/17 07:36 11/13/17 07:36 11/13/17 07:36 11/13/17 07:36 11/13/17 07:36 Intake & Output 11/12/17 11/13/17 11/14/17 06:59 06:59 06:59 Intake Total 1633 130 Balance 1633 130 Weight 47.3 kg 48.1 kg General appearance: PRESENT: no acute distress Eye exam: PRESENT: PERRLA Respiratory exam: PRESENT: clear to auscultation tasha Cardiovascular exam: PRESENT: +S1, +S2 GI/Abdominal exam: PRESENT: normal bowel sounds, soft Neurological exam: PRESENT: alert, awake Psychiatric exam: PRESENT: anxious Skin exam: PRESENT: dry Results Laboratory Results: 11/13/17 04:14 11/13/17 04:14 11/13/17 11/13/17 04:14 04:14 WBC 6.7 RBC 4.20 L Hgb 11.9 L Hct 35.9 L MCV 85 MCH 28.4 MCHC 33.2 RDW 13.8 Plt Count 586 H Seg Neutrophils % 76.7 Lymphocytes % 12.7 L Monocytes % 9.4 Eosinophils % 1.0 Basophils % 0.2 Absolute Neutrophils 5.2 Absolute Lymphocytes 0.9 Absolute Monocytes 0.6 Absolute Eosinophils 0.1 Absolute Basophils 0.0 Sodium 141.9 Potassium 4.1 Chloride 103 Carbon Dioxide 27 Anion Gap 12 BUN 9 Creatinine 0.77 Est GFR ( Amer) > 60 Est GFR (Non-Af Amer) > 60 Glucose 92 Calcium 9.7 Total Bilirubin 0.4 AST 27 ALT 69 Alkaline Phosphatase 72 Total Protein 7.1 Albumin 3.6 Lipase 660.5 H Impressions: Abdomen Ultrasound 11/09/17 00:00 IMPRESSION: Limited study as noted above. No significant intra-abdominal abnormalities were identified. Findings as noted above Plan Time Spent: Greater than 30 Minutes - Discussed with the patient's mother about the current conditions and nursing staff and patient's transfer when the bed is available
[2017-11-13] MEDS: CLOBAZAM 10 MG PO SCH ×2 (10:28→22:13)
[2017-11-13] MEDS: CETIRIZINE 10 MG TABLET PO SCH (10:28)
[2017-11-13] MEDS: DOCUSATE SODIUM 100 MG CAPSULE PO SCH (10:28)
[2017-11-13] MEDS: PANTOPRAZOLE SODIUM 40 MG VIAL IV SCH (10:28)
[2017-11-13] MEDS: LAMOTRIGINE 200 MG PO SCH ×2 (10:29→22:14)
[2017-11-13] MEDS: BRIVARACETAM 100 MG PO SCH ×2 (10:29→22:12)
[2017-11-13] MEDS: CEFEPIME HCL 2 GM in DEXTROSE 5%-WATER 100 ML IV SCH ×2 (10:32→22:12)
[2017-11-14] MEDS: NORMAL SALINE 1000 ML 1,000 ML IV PRN (04:38)
[2017-11-14 05:12] LABS: ANION GAP 13 (5-19); BLOOD UREA NITROGEN 10 mg/dL (7-20); CALCIUM 9.7 mg/dL (8.4-10.2); CARBON DIOXIDE 22 mmol/L (22-30); CHLORIDE 106 mmol/L (98-107); GLUCOSE 80 mg/dL (75-110); POTASSIUM 4.3 mmol/L (3.6-5.0); SODIUM 140.8 mmol/L (137-145)
[2017-11-14] MEDS: ZONISAMIDE 100 MG CAPSULE PO SCH ×2 (06:38→18:39)
--- NOTE | 2017-11-14 08:21 | PDOC PROGRESS REPORT ---
Subjective Progress Note for:: 11/14/17 Subjective:: Patient is currently doing fair Still have a difficult time to feed him and as per discussed with the CT surgeon supposed to go to the [facility] but still bed is not available per the nursing staff and the transfer centers Again I discussed myself to the CT surgeon and hospitalist yesterday about the patient's condition and discussed with them unable to feed him because of ongoing status post surgical issues aware We will try again to call the transfer center Discussed with the mother myself today about the situations Reason For Visit: PANCREATITIS,UTI,VOMITING Physical Exam Vital Signs: Temp Pulse Resp BP Pulse Ox 97.6 F 66 20 119/68 100 11/14/17 04:31 11/14/17 04:31 11/14/17 04:31 11/14/17 04:31 11/14/17 04:31 Intake & Output 11/13/17 11/14/17 11/15/17 06:59 06:59 06:59 Intake Total 130 1200 Balance 130 1200 Weight 48.1 kg 55.2 kg General appearance: PRESENT: no acute distress Eye exam: PRESENT: PERRLA Mouth exam: PRESENT: neck supple Respiratory exam: PRESENT: clear to auscultation tasha Cardiovascular exam: PRESENT: +S1, +S2 GI/Abdominal exam: PRESENT: normal bowel sounds, soft Extremities exam: ABSENT: pedal edema Neurological exam: PRESENT: alert, awake Results Laboratory Results: 11/13/17 04:14 11/14/17 04:15 11/14/17 04:15 Sodium 140.8 Potassium 4.3 Chloride 106 Carbon Dioxide 22 Anion Gap 13 BUN 10 Creatinine 0.75 Est GFR ( Amer) > 60 Est GFR (Non-Af Amer) > 60 Glucose 80 Calcium 9.7 Impressions: Abdomen Ultrasound 11/09/17 00:00 IMPRESSION: Limited study as noted above. No significant intra-abdominal abnormalities were identified. Findings as noted above Assessment & Plan - Diagnosis (1) Abnormal LFTs Is this a current diagnosis for this admission?: Yes Plan: Currently all stable will wait for the surgery to further evaluate (2) Pancreatitis Qualifiers: Chronicity: acute Pancreatitis type: unspecified pancreatitis type Acute pancreatitis complication: unspecified Qualified Code(s): K85.90 - Acute pancreatitis without necrosis or infection, unspecified Is this a current diagnosis for this admission?: Yes Plan: Currently all resolving (3) Seizure disorder Is this a current diagnosis for this admission?: Yes Plan: Continues to spew seizures medications (4) Cerebral palsy Qualifiers: Cerebral palsy type: unspecified type Qualified Code(s): G80.9 - Cerebral palsy, unspecified Is this a current diagnosis for this admission?: Yes (5) Urinary tract infection Qualifiers: Urinary tract infection type: acute cystitis Hematuria presence: without hematuria Qualified Code(s): N30.00 - Acute cystitis without hematuria Is this a current diagnosis for this admission?: Yes Plan: Continues to IV antibioticPrefer not use the Levaquin due to the seizures activityContinues IV cefepime (6) Vomiting Qualifiers: Vomiting type: unspecified Vomiting Intractability: non-intractable Nausea presence: with nausea Qualified Code(s): R11.2 - Nausea with vomiting, unspecified Is this a current diagnosis for this admission?: Yes Plan: Waiting for transfer - Time Time Spent with patient: 15-24 minutes Medications reviewed and adjusted accordingly: Yes Anticipated discharge: [facility], Other Within: Other - Inpatient Certification Medical Necessity: Need Close Monitoring Due to Risk of Patient Decompensation Post Hospital Care: D/C Jd Edwards Developer Documentation - Plan Summary Plan Summary: We will change IV fluid to D5 one half normal saline while patients still unable to eat
[2017-11-14] MEDS: DEXTROSE 5%-1/2 NORMAL SALINE 1,000 ML IV PRN (08:44)
[2017-11-14] MEDS: PANTOPRAZOLE SODIUM 40 MG VIAL IV SCH (09:45)
[2017-11-14] MEDS: DOCUSATE SODIUM 100 MG CAPSULE PO SCH (09:46)
[2017-11-14] MEDS: CETIRIZINE 10 MG TABLET PO SCH (09:51)
[2017-11-14] MEDS: LAMOTRIGINE 200 MG PO SCH ×2 (09:52→21:25)
[2017-11-14] MEDS: BRIVARACETAM 100 MG PO SCH ×2 (09:52→21:24)
[2017-11-14] MEDS: CLOBAZAM 10 MG PO SCH ×2 (09:52→21:25)
[2017-11-14] MEDS: CEFEPIME HCL 2 GM in DEXTROSE 5%-WATER 100 ML IV SCH (09:54)
[2017-11-14] MEDS: CEFEPIME HCL 2 GM in DEXTROSE 5%-WATER 50 ML IV SCH (21:24)
[2017-11-15] MEDS: DEXTROSE 5%-1/2 NORMAL SALINE 1,000 ML IV PRN (03:56)
[2017-11-15 05:32] LABS: ALANINE AMINOTRANSFERASE 55 U/L (21-72); ALBUMIN 3.5 g/dL (3.5-5.0); ALKALINE PHOSPHATASE 69 U/L (38-126); ANION GAP 11 (5-19); ASPARTATE AMINO TRANSFERASE 34 U/L (17-59); BILIRUBIN,DIRECT 0.2 mg/dL (0.0-0.4); BILIRUBIN,TOTAL 0.2 mg/dL (0.2-1.3); BLOOD UREA NITROGEN 8 mg/dL (7-20); CALCIUM 9.5 mg/dL (8.4-10.2); CARBON DIOXIDE 27 mmol/L (22-30); CHLORIDE 106 mmol/L (98-107); GLUCOSE 91 mg/dL (75-110); LIPASE 925.3 U/L (23-300); POTASSIUM 3.6 mmol/L (3.6-5.0); TOTAL PROTEIN 6.7 g/dL (6.3-8.2)
--- NOTE | 2017-11-15 08:54 | PDOC PROGRESS REPORT ---
Subjective Progress Note for:: 11/15/17 Subjective:: Patient is currently doing fair have a one episode of a mild seizure this morning Patient still unable to able to eat No fever no chills Patient still waiting to transfer to the [facility] but most likely issue with the paraesophageal hernia and its myself discussed with the CT surgeon and hospitalist and today again talk to the transfer center and update myself regarding the patient's current conditions and the mother is present when we discussed with the transfer symptoms and mother is also going to call the CT surgeon The biggest problem with this patient is basically unable to eat it with the patient's lipase is elevated but mostly nonspecific main problem is stress related to the status post surgery Reason For Visit: PANCREATITIS,UTI,VOMITING Physical Exam Vital Signs: Temp Pulse Resp BP Pulse Ox 97.6 F 61 18 83/22 L 95 11/15/17 05:44 11/15/17 07:00 11/15/17 05:44 11/15/17 05:44 11/15/17 05:44 Intake & Output 11/14/17 11/15/17 11/16/17 06:59 06:59 06:59 Intake Total 1200 1470 Output Total 0 Balance 1200 1470 Weight 55.2 kg General appearance: PRESENT: no acute distress, well-developed, well-nourished Head exam: PRESENT: atraumatic, normocephalic Eye exam: PRESENT: conjunctiva pink, EOMI, PERRLA. ABSENT: scleral icterus Ear exam: PRESENT: normal external ear exam Mouth exam: PRESENT: moist, tongue midline Neck exam: PRESENT: full ROM. ABSENT: carotid bruit, JVD, lymphadenopathy, thyromegaly Respiratory exam: PRESENT: clear to auscultation tasha Cardiovascular exam: PRESENT: RRR. ABSENT: diastolic murmur, rubs, systolic murmur Pulses: PRESENT: normal dorsalis pedis pul, +2 pedal pulses bilateral Vascular exam: PRESENT: normal capillary refill GI/Abdominal exam: PRESENT: normal bowel sounds, soft. ABSENT: distended, guarding, mass, organolmegaly, rebound, tenderness Rectal exam: PRESENT: deferred Neurological exam: PRESENT: alert, awake. ABSENT: motor sensory deficit Psychiatric exam: PRESENT: appropriate affect, normal mood. ABSENT: homicidal ideation, suicidal ideation Skin exam: PRESENT: dry, intact, warm. ABSENT: cyanosis, rash Results Laboratory Results: 11/13/17 04:14 11/15/17 04:06 11/15/17 04:06 Sodium 144.0 Potassium 3.6 Chloride 106 Carbon Dioxide 27 Anion Gap 11 BUN 8 Creatinine 0.86 Est GFR ( Amer) > 60 Est GFR (Non-Af Amer) > 60 Glucose 91 Calcium 9.5 Total Bilirubin 0.2 AST 34 ALT 55 Alkaline Phosphatase 69 Total Protein 6.7 Albumin 3.5 Lipase 925.3 H 11/09/17 12:47 Blood Blood Culture - Final NO GROWTH IN 5 DAYS 11/09/17 11:52 Blood Blood Culture - Final NO GROWTH IN 5 DAYS Impressions: Abdomen Ultrasound 11/09/17 00:00 IMPRESSION: Limited study as noted above. No significant intra-abdominal abnormalities were identified. Findings as noted above Assessment & Plan - Diagnosis (1) Abnormal LFTs Is this a current diagnosis for this admission?: Yes Plan: Currently all stable will wait for the surgery to further evaluate (2) Pancreatitis Qualifiers: Chronicity: acute Pancreatitis type: unspecified pancreatitis type Acute pancreatitis complication: unspecified Qualified Code(s): K85.90 - Acute pancreatitis without necrosis or infection, unspecified Is this a current diagnosis for this admission?: Yes Plan: Currently all stable lipase is still Nonspecific elevated will get a CT abdomen and pelvis with IV contrast if the patient is not transferred today (3) Seizure disorder Is this a current diagnosis for this admission?: Yes Plan: Continues to spew seizures medications (4) Cerebral palsy Qualifiers: Cerebral palsy type: unspecified type Qualified Code(s): G80.9 - Cerebral palsy, unspecified Is this a current diagnosis for this admission?: Yes (5) Urinary tract infection Qualifiers: Urinary tract infection type: acute cystitis Hematuria presence: without hematuria Qualified Code(s): N30.00 - Acute cystitis without hematuria Is this a current diagnosis for this admission?: Yes Plan: Continues to IV antibioticPrefer not use the Levaquin due to the seizures activityContinues IV cefepime (6) Vomiting Qualifiers: Vomiting type: unspecified Vomiting Intractability: non-intractable Nausea presence: with nausea Qualified Code(s): R11.2 - Nausea with vomiting, unspecified Is this a current diagnosis for this admission?: Yes Plan: Patient's nurse to transfer to the [facility] - Time Time Spent with patient: 15-24 minutes Medications reviewed and adjusted accordingly: Yes Anticipated discharge: [facility], Other Within: Other - Inpatient Certification Medical Necessity: Need Close Monitoring Due to Risk of Patient Decompensation Post Hospital Care: D/C Director Of [employer] Sales Documentation - Plan Summary Plan Summary: Continues to current medications we will waiting to transfer to the [facility]
[2017-11-15] MEDS: CETIRIZINE 10 MG TABLET PO SCH (10:07)
[2017-11-15] MEDS: DOCUSATE SODIUM 100 MG CAPSULE PO SCH (10:07)
[2017-11-15] MEDS: CEFEPIME HCL 2 GM in DEXTROSE 5%-WATER 50 ML IV SCH (10:08)
[2017-11-15] MEDS: CLOBAZAM 10 MG PO SCH (10:08)
[2017-11-15] MEDS: BRIVARACETAM 100 MG PO SCH (10:08)
[2017-11-15] MEDS: ZONISAMIDE 100 MG CAPSULE PO SCH ×2 (10:08→17:30)
[2017-11-15] MEDS: LAMOTRIGINE 200 MG PO SCH (10:09)
[2017-11-15 18:16] VITALS: BP 124/71
--- NOTE | 2017-11-16 01:18 | PDOC PROGRESS REPORT ---
Subjective Progress Note for:: 11/15/17 Subjective:: elevated lipase Pt apparently has poor appetite and has been gagging after liquids po Reason For Visit: PANCREATITIS,UTI,VOMITING Physical Exam Vital Signs: Temp Pulse Resp BP Pulse Ox 97.5 F 72 16 124/71 100 11/15/17 16:12 11/15/17 16:12 11/15/17 16:12 11/15/17 16:12 11/15/17 16:12 Intake & Output 11/14/17 11/15/17 11/16/17 06:59 06:59 06:59 Intake Total 1200 1470 1500 Output Total 0 Balance 1200 1470 1500 Weight 55.2 kg Exam: no abdominal pains nor tenderness. Results Laboratory Results: 11/13/17 04:14 11/15/17 04:06 11/15/17 04:06 Sodium 144.0 Potassium 3.6 Chloride 106 Carbon Dioxide 27 Anion Gap 11 BUN 8 Creatinine 0.86 Est GFR ( Amer) > 60 Est GFR (Non-Af Amer) > 60 Glucose 91 Calcium 9.5 Total Bilirubin 0.2 AST 34 ALT 55 Alkaline Phosphatase 69 Total Protein 6.7 Albumin 3.5 Lipase 925.3 H Impressions: Abdomen Ultrasound 11/09/17 00:00 IMPRESSION: Limited study as noted above. No significant intra-abdominal abnormalities were identified. Findings as noted above Assessment & Plan - Diagnosis (1) Pancreatitis Qualifiers: Chronicity: acute Pancreatitis type: unspecified pancreatitis type Acute pancreatitis complication: unspecified Qualified Code(s): K85.90 - Acute pancreatitis without necrosis or infection, unspecified Is this a current diagnosis for this admission?: Yes - Time Time Spent with patient: 15-24 minutes - Plan Summary Plan Summary: Has elevated lipase to 900. This went down to 600 then back up today to 900. However, no apparent abdominal pains nor tenderness. This may be partly due to chronic pancreatitis which may be causing pts anorexia. [facility]Hopefully they can further address this issue. This however may not be that critical. Dr Yousuf last.
[2017-11-16] MEDS ORDERED: PANTOPRAZOLE SODIUM 40 MG VIAL IV SCH (10:00)
== END 2017-11-15 19:12 | disposition short-term general hospital (02) | DRG 439 ==
LOC: ER 19:48 → EH 11-09 03:24 → 3N 11-09 04:58
PROVIDERS: ADMIT Family Medicine; ATTEND Family Medicine
DX: K85.90 Acute pancreatitis without necrosis or infection, unspecified (principal); N30.00 Acute cystitis without hematuria; F72 Severe intellectual disabilities; G40.909 Epilepsy, unspecified, not intractable, without status epilepticus; G80.9 Cerebral palsy, unspecified; K21.9 Gastro-esophageal reflux disease without esophagitis; R11.2 Nausea with vomiting, unspecified; Z79.899 Other long term (current) drug therapy; Z91.040 Latex allergy status; Z88.8 Allergy status to other drugs, medicaments and biological substances; Z91.09 Other allergy status, other than to drugs and biological substances
CPT/HCPCS: 36415; 51701; 74150; 76700; 80048; 80053; 80076; 81001; 82962; 83690; 85025; 87040; 87086; 87088; 87186; 93005; 93010; 96365; 96366; 96367; 96375; 99285; J0692; J1956; J2405; J3360; J3490; J7030; J7120; S0164

== ENCOUNTER 2018-03-01 11:10 | Emergency (ER) | payer MEDICAID ==
--- NOTE | 2018-03-01 11:28 | ER Document Report ---
ED Medical Screen (RME) - General Chief Complaint: Choked/Choking Stated Complaint: SORE THROAT Time Seen by Provider: 03/01/18 11:17 Notes: 27-year-old male, history of cerebral palsy, wheelchair-bound, sent here for evaluation for persistent gagging. Had recent hernia surgery. Was hospitalized as well for pancreatitis. Mother states that he has had decreased oral intake but still having bowel movements and urinating. States that he has retching sound but not vomiting. Gagging after eating. States that he has been seen by Dr. To but nobody can figure out what is going on. I have greeted and performed a rapid initial assessment of this patient. A comprehensive ED assessment and evaluation of the patient, analysis of test results and completion of the medical decision making process will be conducted by additional ED providers. TRAVEL OUTSIDE OF THE [place] IN LAST 30 DAYS: No - Related Data Allergies/Adverse Reactions: diphenhydramine [From Benadryl] Allergy (Verified 03/01/18 11:13) Latex, Natural Rubber Allergy (Verified 03/01/18 11:13) red dye Allergy (Verified 03/01/18 11:13) Past Medical History Neurological Medical History: Reports: Hx Seizures Renal/ Medical History: Denies: Hx Peritoneal Dialysis GI Medical History: Reports: Hx Gastroesophageal Reflux Disease, Hx Hiatal Hernia Musculoskeltal Medical History: Reports Hx Muscle Weakness Psychiatric Medical History: Denies: Hx Depression Past Surgical History: Reports: Other - G-TUBE, MARIELY, PARA-ESOPHAGEAL HERNIA REPAIR - Immunizations Hx Diphtheria, Pertussis, Tetanus Vaccination: Yes History of Influenza Vaccine for 04/2017 - 09/2017 Season: No Physical Exam - Vital signs Vitals: Temp Pulse Resp BP Pulse Ox 97.6 F 79 20 102/77 100 03/01/18 11:28 03/01/18 11:28 03/01/18 11:28 03/01/18 11:28 03/01/18 11:28 Course - Vital Signs Vital signs: Temp Pulse Resp BP Pulse Ox 97.6 F 79 20 102/77 100 03/01/18 11:28 03/01/18 11:28 03/01/18 11:28 03/01/18 11:28 03/01/18 11:28
--- NOTE | 2018-03-01 12:12 | RADIOLOGY REPORT (SQ) ---
EXAM DESCRIPTION: ACUTE ABDOMEN SERIES COMPLETED DATE/TIME: 03/01/2018 11:53 am REASON FOR STUDY: reflux COMPARISON: None. NUMBER OF VIEWS: Three views. TECHNIQUE: Frontal chest, supine abdomen and upright/ abdomen radiographic images acquired. LIMITATIONS: None. FINDINGS: CHEST: Lungs clear of infiltrates. FREE AIR: None. No abnormal gas collections. BOWEL GAS PATTERN: Nonobstructive gas pattern. A large amount of fecal material is present. CALCIFICATIONS: No suspicious calcifications. HARDWARE: A collar is present around the gastroesophageal junction. SOFT TISSUES: No gross mass or suggestion of organomegaly. BONES: There is dysplasia of the left hip. Scoliosis. OTHER: No other significant finding. IMPRESSION: 1. Constipation. 2. Scoliosis and left hip dysplasia. TECHNICAL DOCUMENTATION: JOB ID: [id number] [employer]- All Rights Reserved Reading location - IP/workstation name: [email or web address]
--- NOTE | 2018-03-01 12:39 | ER Document Report ---
ED General - General Chief Complaint: Choked/Choking Stated Complaint: SORE THROAT Time Seen by Provider: 03/01/18 11:17 TRAVEL OUTSIDE OF THE [place] IN LAST 30 DAYS: No - HPI Notes: Patient is a 27-year-old male with a history of cerebral palsy, wheelchair- bound who presents to the ED with mother complaining of gagging throughout the day, every day, over the last month. Mother states that they have been evaluated by the primary care doctor, Dr. Whitaker, who started him on nausea medication as well as antacid medication with no changes in symptoms. Mother states that he will gag periodically without any pattern. Mother states that he is still able to eat and drink, but does have a decreased p.o. intake. Mother states that he is urinating normally and is having normal bowel movements. Mother states that he does not express when he is in any pain or discomfort. He is also nonverbal. Mother states that he did have 2 hiatal hernia surgery repairs in the past. He has not had any other illness. Mother states that aside from the gagging he is acting and behaving normally. Denies any ear pulling, fever, eye redness, nasal beba/discharge, trouble swallowing, excessive drooling, hoarseness, cough, wheeze, sob, dyspnea, syncope, n/v/d, malodorous urine, hematuria, urinary retention, or rash. - Related Data Allergies/Adverse Reactions: diphenhydramine [From Benadryl] Allergy (Verified 03/01/18 11:13) Latex, Natural Rubber Allergy (Verified 03/01/18 11:13) red dye Allergy (Verified 03/01/18 11:13) Past Medical History - Social History Smoking Status: Never Smoker Chew tobacco use (# tins/day): No Frequency of alcohol use: None Drug Abuse: None Family History: Reviewed & Not Pertinent Patient has suicidal ideation: No Patient has homicidal ideation: No Neurological Medical History: Reports: Hx Seizures Renal/ Medical History: Denies: Hx Peritoneal Dialysis GI Medical History: Reports: Hx Gastroesophageal Reflux Disease, Hx Hiatal Hernia Musculoskeletal Medical History: Reports Hx Muscle Weakness Psychiatric Medical History: Denies: Hx Depression Past Surgical History: Reports: Hx Abdominal Surgery, Other - G-TUBE, MARIELY, PARA-ESOPHAGEAL HERNIA REPAIR - Immunizations Hx Diphtheria, Pertussis, Tetanus Vaccination: Yes Review of Systems - Review of Systems -: Yes ROS unobtainable due to patient's medical condition - per mother otherwise unremarkable as noted in HPI. Physical Exam - Vital signs Vitals: Temp Pulse Resp BP Pulse Ox 97.6 F 79 20 102/77 100 03/01/18 11:28 03/01/18 11:28 03/01/18 11:28 03/01/18 11:28 03/01/18 11:28 - Notes Notes: PHYSICAL EXAMINATION: GENERAL: Well-appearing, well-nourished child in no acute distress. Alert, cooperative, comfortable, moves all extremities w/o difficulty or discomfort noted. HEAD: Atraumatic, normocephalic. EYES: Pupils equal round and reactive to light, extraocular movements intact, sclera anicteric, conjunctiva are normal. ENT: EAC's clear bilaterally. TM's are pearly pitts with a good light reflex, no erythema, perforation, or fluid. Nares patent without discharge, oropharynx mild erythema without exudates. No tonsillar hypertrophy, + mild erythema no exudates. Moist mucous membranes. No sinus tenderness. uvula midline. No palatine shift. No airway compromise. No obvious enlarged epiglottis noted. No nasal flaring. NECK: Normal range of motion, supple without lymphadenopathy. No rigidity/ meningismus. LUNGS: Breath sounds clear to auscultation bilaterally and equal. No wheezes rales or rhonchi. No retractions HEART: Regular rate and rhythm without murmurs ABDOMEN: Soft, nontender (does not seem to be, but mother states that he usually does not indicate if/when he is pain), nondistended abdomen. No guarding, no rebound. No obvious masses appreciated. Musculoskeletal: Normal range of motion, no pitting or edema. No cyanosis. PSYCH: Normal mood, normal affect. SKIN: Warm, Dry, normal turgor, no rashes or lesions noted Course - Re-evaluation Re-evalutation: 03/01/18 15:01 Patient is an afebrile, well-hydrated, 27-year-old male who presents to the ED with acute strep pharyngitis. Vitals are acceptable without any significant tachycardia, tachypnea, or hypoxia. PE is otherwise unremarkable. Patient is nontoxic-appearing is tolerating p.o. without difficulties. CBC, CMP, lipase were unremarkable for any acute pathology. Acute abdomen series was grossly unremarkable for acute pathology, but did note. Patient is reported to be having normal bowel movements otherwise by the mother. I did speak with Dr. Whitaker regarding this patient. No other labs or imaging warranted at this time based on H&P. Low suspicion for any meningitis, sepsis, peritonsillar/ pharyngeal abscess, respiratory compromise, severe dehydration, Ervin's, or other emergent systemic condition at this time. Mother is aware this condition can change from initial presentation and she needs to monitor symptoms closely. I will send him home with prescription for penicillin. Conservative measures otherwise for symptoms. Recheck with your PCM in 3-5 days. Return to the ED with any worsening/concerning symptoms otherwise as reviewed in discharge. Patient is in agreement. - Vital Signs Vital signs: Temp Pulse Resp BP Pulse Ox 97.6 F 79 20 102/77 100 03/01/18 11:28 03/01/18 11:28 03/01/18 11:28 03/01/18 11:28 03/01/18 11:28 - Laboratory Result Diagrams: 03/01/18 12:28 03/01/18 12:28 Laboratory results interpreted by me: 03/01/18 03/01/18 12:28 12:28 Hgb 12.9 L RDW 14.3 H Sodium 147.4 H Discharge - Discharge Clinical Impression: Acute streptococcal pharyngitis Condition: Stable Disposition: HOME, SELF-CARE Instructions: Strep Throat ([facility]), Penicillin V K ([facility]) Additional Instructions: Maintain adequate fluid intake Take meds as directed Salt water gargles, throat sprays, mouthwash rinse, peroxide gargles tylenol/ibuprofen as needed New toothbrush tomorrow evening over the counter cold medication as needed for symptoms F/u: with your PCM in 3-5 days for a recheck Consider consult with ENT for ongoing/worsening symptoms Return to the ED with any fever, worsening pain, chest pain, neck pain/stiffness , shortness of breath, cough, drooling, trouble swallowing/breathing, abdominal pain, n/v/d, rash, or worsening/concerning symptoms otherwise. Prescriptions: Penicillin V Potassium [Penicillin Vk 250 mg Tablet] 500 mg PO BID #40 tablet Referrals: SINAI WHITAKER MD [Primary Care Provider] - Follow up in 3-5 days
[2018-03-01 12:41] LABS: ABSOLUTE LYMPHOCYTES (AUTO) 0.7 10^3/uL (0.5-4.7); ABSOLUTE MONOCYTES (AUTO) 0.3 10^3/uL (0.1-1.4); ABSOLUTE NEUT (AUTO) 3.4 10^3/uL (1.7-8.2); BASOPHILS % (AUTO) 0.3 % (0-2); EOSINOPHILS % (AUTO) 0.7 % (0-6); HEMATOCRIT 40.2 % (37.9-51.0); HEMOGLOBIN 12.9 g/dL (13.5-17.0); LYMPHOCYTES % (AUTO) 14.8 % (13-45); MEAN CORPUSCULAR HEMOGLOBIN 28.5 pg (27.0-33.4); MEAN CORPUSCULAR VOLUME 89 fl (80-97); MONOCYTES % (AUTO) 7.7 % (3-13); PLATELET COUNT 270 10^3/uL (150-450); RED BLOOD COUNT 4.52 10^6/uL (4.35-5.55); RED CELL DISTRIBUTION WIDTH 14.3 % (11.5-14.0); SEGMENTED NEUTROPHILS % (AUTO) 76.5 % (42-78); TOTAL CELLS COUNTED % (AUTO) 100 %; WHITE BLOOD COUNT 4.5 10^3/uL (4.0-10.5)
[2018-03-01 13:00] LABS: ALANINE AMINOTRANSFERASE 45 U/L (21-72); ALBUMIN 4.4 g/dL (3.5-5.0); ALKALINE PHOSPHATASE 93 U/L (38-126); ANION GAP 12 (5-19); ASPARTATE AMINO TRANSFERASE 35 U/L (17-59); BILIRUBIN,DIRECT 0.3 mg/dL (0.0-0.4); BILIRUBIN,TOTAL 0.4 mg/dL (0.2-1.3); BLOOD UREA NITROGEN 15 mg/dL (7-20); CALCIUM 9.7 mg/dL (8.4-10.2); CARBON DIOXIDE 29 mmol/L (22-30); CHLORIDE 106 mmol/L (98-107); GLUCOSE 88 mg/dL (75-110); LIPASE 165.5 U/L (23-300); POTASSIUM 4.3 mmol/L (3.6-5.0); SODIUM 147.4 mmol/L (137-145); TOTAL PROTEIN 8.2 g/dL (6.3-8.2)
[2018-03-01 15:21] VITALS: BP 110/76
== END 2018-03-01 15:18 | disposition home or self-care (01) ==
LOC: ER 11:10
DX: J02.0 Streptococcal pharyngitis (principal); Z91.040 Latex allergy status
CPT/HCPCS: 36415; 74022; 80053; 83690; 85025; 87880; 99283

== ENCOUNTER → 2018-08-21 | Outpatient (CLI) | payer MEDICAID ==
--- NOTE | 2018-08-21 13:01 | RADIOLOGY REPORT (SQ) ---
EXAM DESCRIPTION: CHEST SINGLE VIEW COMPLETED DATE/TIME: 08/21/2018 12:54 pm REASON FOR STUDY: COUGH COMPARISON: 12/11/2016 EXAM PARAMETERS: NUMBER OF VIEWS: One view. TECHNIQUE: Single frontal radiographic view of the chest acquired. RADIATION DOSE: NA LIMITATIONS: None. FINDINGS: LUNGS AND PLEURA: No opacities, masses or pneumothorax. No pleural effusion. MEDIASTINUM AND HILAR STRUCTURES: No masses. Contour normal. HEART AND VASCULAR STRUCTURES: Heart normal in size. Normal vasculature. BONES: No acute findings. HARDWARE: None in the chest. OTHER: No other significant finding. IMPRESSION: NO ACUTE RADIOGRAPHIC FINDING IN THE CHEST. TECHNICAL DOCUMENTATION: JOB ID: [id number] [employer]- All Rights Reserved Reading location - IP/workstation name: [email or web address]
== END ==
LOC: OD 12:30
PROVIDERS: ATTEND Family Medicine
DX: R05 Cough (principal)
CPT/HCPCS: 71045